=== PATIENT | female | born 1980 | race Caucasian/White ===

== ENCOUNTER 2018-05-13 20:33 | Inpatient (IN) | payer MEDICAID ==
[~2018-05-13] VITALS: Ht 170.2 cm; Wt 71.5 kg
--- NOTE | 2018-05-13 20:38 | NUR ---
PT BIBA, REPORT TAKEN FROM EMS. PT PRESENTS TO ED WITH C/O GENERALIZED ABD PAIN, TENDER TO RIGHT LOWER QUAD STARTING TODAY. ZOFRAN 4 MG AND 250 ML NS INFUSED MARBLE MACHINE TENDER. BP AND SPO2 MONITORS IN PLACE. EDMD TU AT BEDSIDE TO EVALUATE.
[2018-05-13] MEDS ORDERED: ONDANSETRON 2MG/ML, 2ML ONE (20:50)
[2018-05-13] MEDS ORDERED: HYDROmorphone 1 MG/ML, 1ML AMP ONE (20:51)
[2018-05-13] MEDS ORDERED: SODIUM CHLORIDE 0.9% 1,000ML IVBOLUS ONE (21:00)
[2018-05-13] MEDS ORDERED: ONDANSETRON 2MG/ML, 2ML IVPush ONE (21:00)
[2018-05-13] MEDS ORDERED: HYDROmorphone 2 MG/ML, 1ML IVPush PRN (21:00)
[2018-05-13] MEDS ORDERED: SODIUM CHLORIDE FLUSH 10ML SYR IVF ONE (21:00)
[2018-05-13 21:12] LABS: MEAN CORPUSCULAR HEMOGLOBIN 25.8 pg (27.0-34.8); MEAN CORPUSCULAR VOLUME 80.6 fL (80-100); MEAN PLATELET VOLUME 8.1 fL (7.4-10.4); PLATELET COUNT 425 x10^3/uL (130-400); RED CELL DISTRIBUTION WIDTH 16.8 % (9.6-15.2)
--- NOTE | 2018-05-13 21:17 | NUR ---
PT MEDICATED PER EMAR, TOLERATED WELL. PT REFUSING TO ATTEMPT TO VOID AT THIS TIME STATING SHE HAS "TOO MUCH PAIN" ; EDMD TU AWARE. ALL MONITORS IN PLACE. PT'S SPO2 DROPPED TO 88% S/P DILAUDID, OXYGEN APPLIED AT 2L/MIN. CALL LIGHT IN REACH. S/O AT BEDSIDE. PT AWARE OF NEED FOR URINE SAMPLE WHEN ABLE.
[2018-05-13 21:24] LABS: ALANINE AMINOTRANSFERASE 37 U/L (12-78); ALBUMIN 3.5 g/dL (3.4-5.0); ANION GAP 6 mmol/L (5-15); CALCIUM 8.3 mg/dL (8.5-10.1); CHLORIDE 106 mmol/L (98-107); CREATININE 0.66 mg/dL (0.55-1.02)
[2018-05-13 21:26] LABS: MD YES
[2018-05-13 21:28] LABS: <PLATELET ESTIMATE> ADEQUATE; <PLT MORPHOLOGY> NORMAL PLT MORPH; <RBC MORPHOLOGY> NORMAL; BAND#(MANUAL) 1.55 x10^3/uL; BANDS%(MANUAL) 7 % (0-7); LYMPH#(MANUAL) 0.88 x10^3/uL (1-3.4); LYMPHS% (MANUAL) 4 % (22-44); MONOS#(MANUAL) 0.88 x10^3/uL (0.3-2.7); MONOS% (MANUAL) 4 % (2-9); SEG#(MANUAL) 18.79 x10^3/uL (1.8-6.8); SEGS% (MANUAL) 85 % (42-75)
[2018-05-13 21:29] LABS: ALKALINE PHOSPHATASE 80 U/L (45-117); BILIRUBIN,TOTAL 1.7 mg/dL (0.2-1.0); TOTAL PROTEIN 7.3 g/dL (6.4-8.2)
--- NOTE | 2018-05-13 21:37 | NUR ---
LABWORK REVIEWED BY EDMD TU INCLUDING WBC COUNT. PT INFORMED OF NEED FOR UA, PT STILL REFUSING TO ATTEMPT VOID. PT REFUSES STRAIGHT CATH WHEN MD OFFERS THIS OPTION. PT IS RESTING ON GURNEY, STATES PAIN IMPROVED. PT IS A&O, RESPS EVEN AND UNLABORED. ALL MONITORS IN PLACE.
--- NOTE | 2018-05-13 21:53 | NUR ---
PT TO CT
[2018-05-13] MEDS ORDERED: OMNIPAQUE 350 MG/ML, 100ML BOTTLE ONE (22:36)
--- NOTE | 2018-05-13 22:40 | NUR ---
pt back from CT, mostly sleeping, resps even and unlabored. pt instructed to provide clean catch ua, pt up to bathroom to void, gait steady.
[2018-05-13 22:57] LABS: MICROSCOPIC AUTO
[2018-05-13 23:08] LABS: CULTURE INDICATED? YES
[2018-05-13] MEDS ORDERED: PIPERACILLIN/TAZO/PMX 3.375GM 50 ML IVPB ONE (23:30)
[2018-05-13] MEDS ORDERED: PIPERACILLIN/TAZO/PMX 3.375GM 50 ML ONE (23:30)
--- NOTE | 2018-05-13 23:30 | NUR ---
EDMD Charlotte at bedside to discuss results and POC.
[2018-05-13] MEDS ORDERED: SODIUM CHLORIDE 0.9% 1,000 ML IV ONE (23:36)
--- NOTE | 2018-05-13 23:40 | NUR ---
zosyn started after blood cx started x 2
[2018-05-14] MEDS ORDERED: MORPHINE SULFATE 4 MG/ML, 1ML IVPush PRN
[2018-05-14] MEDS ORDERED: PROMETHAZINE 25 MG/ML, 1ML IM PRN
[2018-05-14] MEDS ORDERED: SODIUM CHLORIDE 0.9% 1,000ML IVBOLUS ONE
[2018-05-14] MEDS ORDERED: SODIUM CHLORIDE FLUSH 10ML SYR IVF PRN
--- NOTE | 2018-05-14 | NUR ---
report given to receiving auto travel counselor Ann, pt awaiting transport to [facility]. pt sleeping, resps even and unlabored. second liter ns bolus infusing, zosyn infusing. boyfriend at bedside. report given to ED FRANKIE Canas who is caring for pt while awaiting transport.
[2018-05-14 00:21] VITALS: BP 136/81
[2018-05-14 02:00] VITALS: BP 136/87
[2018-05-14 05:25] VITALS: BP 123/81
[2018-05-14] MEDS ORDERED: BUPIVACAINE/PF-EPI 0.5% 1:200K ONE (05:33)
[2018-05-14] MEDS ORDERED: MIDAZOLAM 1 MG/ML, 2ML ONE (05:54)
[2018-05-14] MEDS ORDERED: FENTANYL PF 250 MCG/5ML ONE (05:54)
[2018-05-14] MEDS ORDERED: SUGAMMADEX 200 MG/2 ML IVPush ONE (06:23)
[2018-05-14] MEDS ORDERED: MEPERIDINE/PF 25MG/0.5ML IVPush PRN (06:30)
[2018-05-14] MEDS ORDERED: ALBUTEROL SULFATE 2.5 MG/3 ML NPPB PRN (06:30)
[2018-05-14] MEDS ORDERED: OXYcodone 5 MG/5 ML ORAL.SOL UDC PO PRN (06:30)
[2018-05-14] MEDS ORDERED: METOCLOPRAMIDE 5 MG/ML, 2ML IV PRN (06:30)
[2018-05-14] MEDS ORDERED: PROMETHAZINE 25 MG/ML, 1ML IV PRN (06:30)
[2018-05-14] MEDS ORDERED: FENTANYL PF 100 MCG/2ML IV PRN (06:30)
[2018-05-14] MEDS ORDERED: HYDROmorphone 1 MG/ML, 1ML AMP IV PRN (06:30)
[2018-05-14] MEDS ORDERED: LABETALOL 5MG/ML, 20ML IV PRN (06:30)
[2018-05-14] MEDS ORDERED: KETOROLAC 30 MG/1 ML IV PRN (06:30)
[2018-05-14] MEDS ORDERED: ONDANSETRON 2MG/ML, 2ML IVPush PRN ×2 (06:30)
[2018-05-14] MEDS ORDERED: hydrALAzine 20 MG/ML, 1ML IV PRN (06:30)
[2018-05-14] MEDS ORDERED: KETOROLAC 30 MG/1 ML ONE (07:28)
[2018-05-14] MEDS ORDERED: OXYcodone 5 MG/5 ML ORAL.SOL UDC ONE (07:39)
[2018-05-14 08:24] VITALS: BP 113/74
[2018-05-14] MEDS: ACETAMINOPHEN 500 MG TABLET PO SCH ×3 (08:30→20:30)
[2018-05-14] MEDS ORDERED: OXYcodone IR 5MG TABLET PO PRN (08:30)
[2018-05-14] MEDS ORDERED: ROCURONIUM 10MG/ML,5ML ONE (11:11)
[2018-05-14] MEDS ORDERED: CEFAZOLIN 1,000 MG ONE (11:11)
[2018-05-14] MEDS ORDERED: SUCCINYLCHOLINE 20 MG/ML, 10ML ONE (11:11)
[2018-05-14] MEDS ORDERED: PROPOFOL 10 MG/ML, 20ML ONE (11:11)
[2018-05-14] MEDS ORDERED: ONDANSETRON 2MG/ML, 2ML ONE (11:11)
[2018-05-14] MEDS ORDERED: DEXAMETHASONE 4 MG/ML, 1ML ONE (11:11)
[2018-05-14] MEDS ORDERED: LIDODERM 5% PATCH TD PRN (12:00)
[2018-05-14] MEDS ORDERED: ONDANSETRON ODT 4 MG PO PRN (12:00)
[2018-05-14] MEDS ORDERED: POLYETHYLENE GLYCOL 17 GM PACKET PO PRN (12:00)
[2018-05-14] MEDS ORDERED: DOCUSATE 100 MG CAPSULE PO PRN (12:00)
[2018-05-14] MEDS: CEFOTETAN PMX 2GM/50ML 50 ML IV SCH (12:00)
[2018-05-14] MEDS: D5%-0.45NACL+KCL 20MEQ 1,000 ML IV SCH (12:00)
[2018-05-14] MEDS ORDERED: ACETAMINOPHEN 325 MG TABLET PO PRN (12:00)
[2018-05-14] MEDS ORDERED: GUAIFENESIN/DM 200-20MG, 10ML UDC PO PRN (12:00)
[2018-05-14] MEDS ORDERED: BISACODYL 10 MG SUPP PR PRN (12:00)
[2018-05-14] MEDS ORDERED: hydrALAzine 20 MG/ML, 1ML IVPush PRN (12:00)
[2018-05-14] MEDS: IBUPROFEN 800 MG TABLET PO SCH ×2 (13:46→17:49)
[2018-05-14] MEDS: DOXYCYCLINE 100 MG in DEXTROSE 5% 250 ML IV SCH (13:47)
[2018-05-14 15:05] VITALS: BP 133/81
[2018-05-14] MEDS: METRONIDAZOLE PMX 500MG/100ML 100 ML IV SCH (16:54)
[2018-05-14] MEDS ORDERED: NICOTINE 7 MG/24 HR PATCH.TD24 TD SCH (19:00)
[2018-05-14 19:41] VITALS: BP 139/80
[2018-05-15 01:24] VITALS: BP 148/91
[2018-05-15] MEDS: CEFOTETAN PMX 2GM/50ML 50 ML IV SCH ×2 (01:32→12:41)
[2018-05-15] MEDS: METRONIDAZOLE PMX 500MG/100ML 100 ML IV SCH ×2 (02:30→10:07)
[2018-05-15] MEDS: DOXYCYCLINE 100 MG in DEXTROSE 5% 250 ML IV SCH (03:27)
[2018-05-15] MEDS: ACETAMINOPHEN 500 MG TABLET PO SCH ×2 (03:30→08:59)
[2018-05-15 04:52] LABS: ALANINE AMINOTRANSFERASE 26 U/L (12-78); ALBUMIN 2.8 g/dL (3.4-5.0); ANION GAP 6 mmol/L (5-15); CHLORIDE 111 mmol/L (98-107); CREATININE 0.98 mg/dL (0.55-1.02)
[2018-05-15 04:54] LABS: MEAN CORPUSCULAR HEMOGLOBIN 26.7 pg (27.0-34.8); MEAN CORPUSCULAR HGB CONC 32.7 g/dL (32.4-35.8); MEAN CORPUSCULAR VOLUME 81.6 fL (80-100); MEAN PLATELET VOLUME 8.5 fL (7.4-10.4); PLATELET COUNT 394 x10^3/uL (130-400); RED BLOOD COUNT 4.21 x10^6/uL (3.82-5.3); RED CELL DISTRIBUTION WIDTH 16.3 % (9.6-15.2)
[2018-05-15 04:55] LABS: ALKALINE PHOSPHATASE 75 U/L (45-117); BILIRUBIN,TOTAL 0.5 mg/dL (0.2-1.0); TOTAL PROTEIN 6.5 g/dL (6.4-8.2)
[2018-05-15 05:13] LABS: MD YES
[2018-05-15 05:14] LABS: <PLATELET ESTIMATE> ADEQUATE; <PLT MORPHOLOGY> NORMAL PLT MORPH; ANISOCYTOSIS 1+; BAND#(MANUAL) 0.82 x10^3/uL; BANDS%(MANUAL) 4 % (0-7); EOS% (MANUAL) 1 % (1-7); LYMPH#(MANUAL) 1.84 x10^3/uL (1-3.4); LYMPHS% (MANUAL) 9 % (22-44); MONOS% (MANUAL) 1 % (2-9); SEG#(MANUAL) 17.34 x10^3/uL (1.8-6.8); SEGS% (MANUAL) 85 % (42-75)
[2018-05-15 07:36] VITALS: BP 151/98
[2018-05-15] MEDS: IBUPROFEN 800 MG TABLET PO SCH ×2 (08:59→12:00)
[2018-05-15] MEDS: D5%-0.45NACL+KCL 20MEQ 1,000 ML IV SCH (10:07)
== END 2018-05-15 15:21 | disposition left against medical advice (07) | DRG 749 ==
LOC: ED 21:46 → 3NE 23:36
PROVIDERS: ADMIT Surgery; ATTEND Surgery
PROC: 0DTJ4ZZ Resection of Appendix, Percutaneous Endoscopic Approach (ICD-10-PCS; principal; 2018-05-14 06:00)
DX: T83.32XA Displacement of intrauterine contraceptive device, initial encounter (principal); K35.30 Acute appendicitis with localized peritonitis, without perforation or gangrene; R35.0 Frequency of micturition; Z53.21 Procedure and treatment not carried out due to patient leaving prior to being seen by health care provider; Y76.2 Prosthetic and other implants, materials and accessory obstetric and gynecological devices associated with adverse incidents; F12.90 Cannabis use, unspecified, uncomplicated; N73.9 Female pelvic inflammatory disease, unspecified; F17.200 Nicotine dependence, unspecified, uncomplicated; Z98.891 History of uterine scar from previous surgery; Y92.89 Other specified places as the place of occurrence of the external cause
CPT/HCPCS: 36415; 74177; 76856; 80053; 80074; 81001; 83605; 83690; 84145; 84703; 85025; 86592; 86780; 87040; 87086; 87806; 88304; 96361; 96365; 96375; G0378; J0690; J1100; J1170; J1885; J2250; J2405; J2543; J2704; J3010; J7060; Q9967; G0475; J0330; J3480; J3490; J7030

== ENCOUNTER 2018-05-16 00:30 | Emergency (ER) | payer MEDICAID ==
[~2018-05-16] VITALS: Ht 172.7 cm; Wt 73.0 kg
--- NOTE | 2018-05-16 00:56 | NUR ---
DR THOMPSON AT BED SIDE FOR EVAL
[2018-05-16] MEDS ORDERED: KETOROLAC 30 MG/1 ML ONE (01:10)
--- NOTE | 2018-05-16 01:22 | NUR ---
PT. VERY RESTLESS IN BED AND PULLING MONITORS OFF. PT. UNABLE TO PROVIDE URINE SAMPLE AT THIS TIME. REQUESTED PT TO LEAVE MONITORS IN PLACE. MEDICATED PER APR.
[2018-05-16 01:24] LABS: BASOPHILS # (AUTO) 0.01 x10^3/uL (0-0.1); BASOPHILS % (AUTO) 0 % (0-1); EOSINOPHILS # (AUTO) 0.26 x10^3/uL (0-0.4); EOSINOPHILS % (AUTO) 2 % (1-7); LYMPHOCYTES # (AUTO) 1.26 x10^3/uL (1-3.4); LYMPHOCYTES % (AUTO) 8 % (22-44); MD NO; MEAN CORPUSCULAR HEMOGLOBIN 26.4 pg (27.0-34.8); MEAN CORPUSCULAR HGB CONC 32.6 g/dL (32.4-35.8); MEAN CORPUSCULAR VOLUME 80.9 fL (80-100); MEAN PLATELET VOLUME 8.5 fL (7.4-10.4); MONOCYTES # (AUTO) 0.16 x10^3/uL (0.2-0.8); MONOCYTES % (AUTO) 1 % (2-9); NEUTROPHILS # (AUTO) 13.74 x10^3/uL (1.8-6.8); NEUTROPHILS % (AUTO) 89 % (42-75); PLATELET COUNT 419 x10^3/uL (130-400); RED BLOOD COUNT 4.09 x10^6/uL (3.82-5.3); RED CELL DISTRIBUTION WIDTH 16.7 % (9.6-15.2)
[2018-05-16] MEDS ORDERED: KETOROLAC 30 MG/1 ML IVPush ONE (01:30)
[2018-05-16 01:31] LABS: ALANINE AMINOTRANSFERASE 36 U/L (12-78); ALBUMIN 2.8 g/dL (3.4-5.0); ANION GAP 7 mmol/L (5-15); CHLORIDE 107 mmol/L (98-107); CREATININE 0.68 mg/dL (0.55-1.02)
[2018-05-16 01:34] LABS: ALKALINE PHOSPHATASE 81 U/L (45-117); BILIRUBIN,TOTAL 0.7 mg/dL (0.2-1.0); TOTAL PROTEIN 6.7 g/dL (6.4-8.2)
--- NOTE | 2018-05-16 02:14 | NUR ---
CHEST X-RAY HAS BEEN COMPLETED. PT. REPORTS FEELING SOMEWHAT BETTER AFTER MEDS. HEART AND SPO2 MONIOTRS IN PLACE. CALL LIGHT IN REACH. PT. UNABLE TO PROVIDE URINE SAMPLE AT THIS TIME.
--- NOTE | 2018-05-16 02:53 | NUR ---
PT. AMBULATORY TO BR WITH URINE CUP TO PROVIDE URINE SAMPLE. CLEAN CATCH INSTRUCITONS GIVEN.
[2018-05-16 03:10] LABS: HCG UR SG 1.028 (1.003-1.030)
[2018-05-16 03:11] LABS: CULTURE INDICATED? YES; MICROSCOPIC INDICATED
[2018-05-16 03:21] LABS: AMPHETAMINE SCREEN, URINE Positive (Negative); BARBITURATE SCREEN, URINE Negative (Negative); BENZODIAZEPINE SCREEN, URINE Negative (Negative); CANNABINOID SCREEN, URINE Positive (Negative); COCAINE SCREEN, URINE Negative (Negative); METHADONE SCREEN, URINE Negative (Negative); OPIATE SCREEN, URINE Negative (Negative)
--- NOTE | 2018-05-16 04:25 | NUR ---
PT. TO BE D/C PER ERMD.
[2018-05-16 05:09] VITALS: BP 146/93
== END 2018-05-16 05:09 | disposition home or self-care (01) ==
LOC: ED 01:45
DX: N73.9 Female pelvic inflammatory disease, unspecified (principal); F15.10 Other stimulant abuse, uncomplicated; G89.18 Other acute postprocedural pain; Z72.9 Problem related to lifestyle, unspecified; Z90.89 Acquired absence of other organs
CPT/HCPCS: 36415; 71045; 80053; 80307; 81001; 81025; 83690; 85025; 87086; 96374; 99284; J1885

== ENCOUNTER 2019-07-02 03:41 | Emergency (ER) | payer SELFPAY ==
[~2019-07-02] VITALS: Ht 170.2 cm; Wt 74.0 kg
--- NOTE | 2019-07-02 03:51 | NUR ---
Patient BIB [facility] c/o intermittent RLQ abd pain for a few months. Patient thinks she is ; LMP was three months ago but she has had spotting but states it is "weird." Patient has four other children. She had her appendix rupture "several" months ago. Patient is also feeling anxious. Patient is in NAD. Respirations even and unlabored.
--- NOTE | 2019-07-02 03:58 | NUR ---
Patient states she is unable to provide urine at this time.
[2019-07-02 04:01] LABS: BASOPHILS # (AUTO) 0.04 x10^3/uL (0-0.1); BASOPHILS % (AUTO) 1 % (0-1); EOSINOPHILS # (AUTO) 0.22 x10^3/uL (0-0.4); EOSINOPHILS % (AUTO) 3 % (1-7); LYMPHOCYTES % (AUTO) 19 % (22-44); MD NO; MEAN CORPUSCULAR HEMOGLOBIN 28.3 pg (27.0-34.8); MEAN CORPUSCULAR HGB CONC 32.9 g/dL (32.4-35.8); MEAN CORPUSCULAR VOLUME 85.9 fL (80-100); MEAN PLATELET VOLUME 8.2 fL (7.4-10.4); MONOCYTES # (AUTO) 0.54 x10^3/uL (0.2-0.8); MONOCYTES % (AUTO) 6 % (2-9); NEUTROPHILS # (AUTO) 6.13 x10^3/uL (1.8-6.8); NEUTROPHILS % (AUTO) 72 % (42-75); PLATELET COUNT 336 x10^3/uL (130-400); RED BLOOD COUNT 4.89 x10^6/uL (3.82-5.3); RED CELL DISTRIBUTION WIDTH 17.1 % (9.6-15.2)
[2019-07-02 04:14] LABS: ALANINE AMINOTRANSFERASE 101 U/L (12-78); ALBUMIN 3.8 g/dL (3.4-5.0); ANION GAP 9 mmol/L (5-15); CALCIUM 8.6 mg/dL (8.5-10.1); CHLORIDE 105 mmol/L (98-107); CREATININE 0.74 mg/dL (0.55-1.02)
[2019-07-02 04:18] LABS: ALKALINE PHOSPHATASE 92 U/L (45-117); BILIRUBIN,TOTAL 1.2 mg/dL (0.2-1.0); TOTAL PROTEIN 8.3 g/dL (6.4-8.2)
[2019-07-02 05:57] VITALS: BP 175/118
[2019-07-02 06:11] LABS: MICROSCOPIC INDICATED
[2019-07-02 06:18] LABS: AMPHETAMINE SCREEN, URINE Positive (Negative); BARBITURATE SCREEN, URINE Negative (Negative); BENZODIAZEPINE SCREEN, URINE Negative (Negative); CANNABINOID SCREEN, URINE Positive (Negative); COCAINE SCREEN, URINE Negative (Negative); METHADONE SCREEN, URINE Negative (Negative); OPIATE SCREEN, URINE Negative (Negative)
--- NOTE | 2019-07-02 06:35 | NUR ---
Discharge instructions given. All questions and concerns addressed. Patient ambulatory with a steady gait. Belongings with patient.
== END 2019-07-02 06:37 | disposition home or self-care (01) ==
LOC: ED 05:07
DX: R10.31 Right lower quadrant pain (principal); R10.11 Right upper quadrant pain; F15.10 Other stimulant abuse, uncomplicated; F17.200 Nicotine dependence, unspecified, uncomplicated; Z72.9 Problem related to lifestyle, unspecified
CPT/HCPCS: 36415; 76700; 80053; 80307; 81001; 83690; 84703; 85025; 87086; 99284

== ENCOUNTER 2020-03-09 10:49 | Emergency (ER) | payer MEDICAID ==
[~2020-03-09] VITALS: Ht 170.2 cm; Wt 75.2 kg
--- NOTE | 2020-03-09 11:22 | NUR ---
PT WALKED FROM LOBBY TO ROOM WHERE TRIAGE WAS PERFORMED. DR HAIRSTON AT FOR PT HISTORY AND ASSESSMENT. PT VERBALIES UNDERSTANDING OF ER PROCESS AND POC AND CHANGED INTO GOWN AT THIS TIME. PT HAS CALL LIGHT WITHIN REACH AND VERBALIZES UNDERSTANDING OF NEED TO USE CALL LIGHT TO NOTIFY RN WHEN UA SAMPLE IS POSSIBLE TO OBTAIN.
--- NOTE | 2020-03-09 11:24 | NUR ---
LAB AT BS AT THIS TIME.
[2020-03-09 11:36] LABS: BASOPHILS % (AUTO) 2 % (0-1); EOSINOPHILS % (AUTO) 4 % (1-7); LYMPHOCYTES % (AUTO) 29 % (22-44); MEAN CORPUSCULAR HGB CONC 33.4 g/dL (32.4-35.8); MEAN PLATELET VOLUME 7.9 fL (7.4-10.4); MONOCYTES % (AUTO) 8 % (2-9); NEUTROPHILS % (AUTO) 57 % (42-75); PLATELET COUNT 342 x10^3/uL (130-400); RED BLOOD COUNT 4.54 x10^6/uL (3.82-5.3); RED CELL DISTRIBUTION WIDTH 16.3 % (9.6-15.2)
[2020-03-09 11:42] LABS: MD NO
[2020-03-09 11:52] LABS: ALBUMIN 3.4 g/dL (3.4-5.0); CALCIUM 8.6 mg/dL (8.5-10.1); CHLORIDE 109 mmol/L (98-107)
[2020-03-09 11:58] LABS: ALANINE AMINOTRANSFERASE 123 U/L (12-78); ALKALINE PHOSPHATASE 98 U/L (45-117); BILIRUBIN,TOTAL 0.8 mg/dL (0.2-1.0); CREATININE 0.78 mg/dL (0.55-1.02); TOTAL PROTEIN 7.9 g/dL (6.4-8.2)
[2020-03-09 11:59] LABS: ANION GAP 5 mmol/L (5-15)
--- NOTE | 2020-03-09 12:45 | NUR ---
pt to imaging via [employer] at this time.
[2020-03-09 13:19] LABS: MICROSCOPIC INDICATED
[2020-03-09 13:24] LABS: AMPHETAMINE SCREEN, URINE Positive (Negative); BARBITURATE SCREEN, URINE Negative (Negative); BENZODIAZEPINE SCREEN, URINE Negative (Negative); CANNABINOID SCREEN, URINE Positive (Negative); COCAINE SCREEN, URINE Negative (Negative); METHADONE SCREEN, URINE Negative (Negative); OPIATE SCREEN, URINE Negative (Negative)
[2020-03-09 13:41] VITALS: BP 160/102
== END 2020-03-09 14:24 | disposition home or self-care (01) ==
LOC: ED 12:06
DX: N30.00 Acute cystitis without hematuria (principal); F15.122 Other stimulant abuse with intoxication with perceptual disturbance; R00.0 Tachycardia, unspecified; Z90.89 Acquired absence of other organs; F17.200 Nicotine dependence, unspecified, uncomplicated
CPT/HCPCS: 36415; 74176; 80053; 80307; 80320; 81001; 83690; 84703; 85025; 87077; 87086; 87186; 99284; G0480